=== PATIENT | female | born 1960 | race Hispanic/Latino ===

== ENCOUNTER 2018-05-06 08:23 | Emergency (ER) | payer OTHER ==
[~2018-05-06] VITALS: Ht 157.5 cm; Wt 71.2 kg
--- OUTSIDE RECORDS SUMMARY | 2018-05-06 08:25 | XMS REPORT | Clinical Summary ---
Author Author [facility] Address Unknown Phone Unavailable Care Team Providers Care Brick Paver Name Role Phone Torsten Reyes MD PCP Unavailable Allergies Not on File Medications Not on file Active Problems Not on file Social History Date Tobacco Use Types Packs/Day Years Used Never Assessed Sex Assigned at Date Recorded Not on file Industry Job Start Date Occupation Not on file Not on file Not on file Travel End Travel History Travel Start No recent travel history available. Last Filed Vital Signs Not on file Plan of Treatment Health Maintenance Due Date Last Done Comments CERVICAL CANCER SCREENING 1983 BREAST CANCER SCREENING 2012 COLON CANCER SCREENING 2012 SHINGLES VACCINES ( of 2012 2) INFLUENZA VACCINE 12/06/2017 Results Not on fileafter 05/05/2017 Insurance Payer Benefit Subscriber ID Type Phone Address Plan / Group AETNA AETNA xxxxxxxxxx HMO HMO,POS,EP O, MC/EC Advance Directives Patient has advance care planning documents on file. For more information, jeannine ayala contact: [facility] [address] [place] [address]
== END 2018-05-06 09:25 | disposition home or self-care (01) ==
LOC: FSED 08:23
DX: R05 Cough (principal); J04.0 Acute laryngitis; J00 Acute nasopharyngitis [common cold]
CPT/HCPCS: 87400; 99283